=== PATIENT | male | born 1980 | race African-American/Black ===

== ENCOUNTER 2019-09-02 08:10 | Emergency (ER) | payer BC ==
[~2019-09-02] VITALS: Ht 175.3 cm; Wt 84.1 kg
[2019-09-02 08:11] VITALS: BP 143/86
== END 2019-09-02 09:00 | disposition home or self-care (01) ==
LOC: EMS 08:24
DX: F17.210 Nicotine dependence, cigarettes, uncomplicated (principal); Z20.828 Contact with and (suspected) exposure to other viral communicable diseases

== ENCOUNTER 2019-09-03 09:16 | Emergency (ER) | payer BC ==
[~2019-09-03] VITALS: Ht 175.3 cm; Wt 84.1 kg
[2019-09-03 09:26] VITALS: BP 145/67
== END 2019-09-03 09:47 | disposition home or self-care (01) ==
LOC: EMS 09:20
DX: Z03.818 Encounter for observation for suspected exposure to other biological agents ruled out (principal); F17.210 Nicotine dependence, cigarettes, uncomplicated
CPT/HCPCS: 87635